=== PATIENT | female | born 1985 | race Caucasian/White ===

== ENCOUNTER 2020-04-16 09:17 | Emergency (ER) | payer OTHER ==
[~2020-04-16] VITALS: Ht 157.5 cm; Wt 49.9 kg
[2020-04-16] MEDS ORDERED: NORFLEX100MG PO (12:44)
[2020-04-16] MEDS ORDERED: KETO10TA2 PO (12:44)
== END 2020-04-16 12:49 | disposition home or self-care (01) ==
LOC: ER 09:17
DX: M54.5 Low back pain (principal)

== ENCOUNTER 2022-06-08 14:03 | Emergency (ER) | payer OTHER ==
[~2022-06-08] VITALS: Ht 157.5 cm; Wt 49.9 kg
[~2022-06-08 14:03] MED LIST: KETO10TA2 PO; NORFLEX100MG PO
== END 2022-06-08 17:32 | disposition home or self-care (01) ==
LOC: ER 14:03
DX: J37.0 Chronic laryngitis (principal)

== ENCOUNTER 2024-11-01 08:26 | Outpatient (CLI) | payer OTHER | END 2024-11-01 08:29 | disposition home or self-care (01) | LOC: RAD 08:26 | DX: M25.552 Pain in left hip (principal) ==